=== PATIENT | male | born 1985 | race Caucasian/White ===

== ENCOUNTER 2024-04-10 13:28 | Emergency (ER) | payer OTHER, SELFPAY ==
--- OUTSIDE RECORDS SUMMARY | 2024-04-10 13:31 | XMS_ITS | Clinical Summary ---
Author Organization [facility] Address [place], [place] [address] Care Team Providers Care Neurosurgery Physician Name Role Phone Yovani Rinaldi MD Primary Care Provider [phone] Allergies Active Allergy Reactions Criticality Noted Date Comments Sulfa (Sulfonamide Antibiotics) Rash 12/08 Medications No known medications Family History Relation Name Status Comments Father Alive Mother Alive Social History Tobacco Use Types Packs/Day Years Used Date Smoking Tobacco: Every Day Cigarettes Smokeless Tobacco: Never Tobacco Cessation:Ready to Q uit: No; Counseling Given: Yes Sex and Gender Information Value Date Recorded Sex Assigned at Not on file Legal Sex Male 10:33 AM CDT Gender Identity Not on file Sexual Orientation Not on file Obstetrics History Last Filed Vital Signs Vital Sign Reading Time Taken Comments Blood Pressure 145/88 01/04/2018 10:48 AM CDT Pulse 74 01/04/2018 10:48 AM CDT Temperature 37 C (98.6 F) 01/04/2018 10:48 AM CDT Respiratory Rate - - Oxygen Saturation 99% 01/04/2018 10: 48 AM CDT Inhaled Oxygen Concentration - - Weight 112.9 kg (248 lb 12.8 oz) 2017 10:48 AM CDT Height - - Body Mass Index - - Plan of Treatment Health Maintenance Due Date Last Done Comments Tdap 1997 Depression screening for age 12+ 1998 HIV for age 15-65 2001 BMI (ht and wt on same day) for age 18+ 2004 Hepatitis C screening for ag e 18-79 2004 Tetanus booster 2006 Lipids for age 35-44 2021 COVID-19 vaccine series ( season) 2023 Influenza for age 9-49 12/08/2023 Pneumococcal series for age 6-49 Aged Out No longer eligible based on patient's age to complete this topic Insurance ZINA ADAIR [id number] Care Teams Neurosurgery Physician Relationship Specialty Start Date End Date Yovani Rinaldi MD [address] [place] [address] PCP - General Family Practice 01/04/18
[2024-04-10 13:45] VITALS: BP 144/80; PULSE 78; RESP 16; TEMP 36.8; O2SAT 97; BMI 37.0
--- NOTE | 2024-04-10 15:23 | ED_ITS ---
HPI - Wound/Laceration General Time Seen by Provider: 15:23 Date Seen: 04/10/24 Chief Complaint: Laceration/Wound Stated Complaint: left hand middle finger cut by razor jovani Time Seen by Provider: 04/10/24 15:23 Source: patient and RN notes reviewed Mode of arrival: ambulatory Limitations: no limitations History of Present Illness HPI narrative: Dany is a very pleasant 39-year-old male with up-to-date tetanus in 2017 who comes to the emergency room for evaluation regarding a laceration to the dorsum of his left hand. Patient notes that he was at work when this occurred. He was using a new blade that he shows me and is triangle cutting new pipe and it slipped and the blade went into the area of the hand just lateral and distal to the MCP. Since that time the wound has stopped bleeding but he states he has a numb type feeling and he has a hard time with straightening of his 3rd finger. He has not injured this finger in the past. Related Data Allergies Allergy/AdvReac Type Severity Reaction Status Date / Time Sulfa (Sulfonamide Allergy Intermediate Hives Verified 01/13/23 11:47 Antibiotics) Review of Systems Status of ROS: Reports: 6 or more systems reviewed and unremarkable except as noted in History and below [facility] Social History Smoking Status: Current some day smoker Exam Narrative: Exam Narrative: Alert and oriented no acute distress. Examination of the dorsum of the left hand shows a 2.3 cm laceration at the base of the 3rd finger lateral to the midline. This compromises epidermis and dermis . Underlying structures are visualized. No foreign bodies are noted. Patient has full sensation distally. However extension against resistance is painful and weaker than the other fingers. Const: Vital Signs, click to edit/add: Vital Signs - 24 hr 04/10/24 13:45 Temperature 98.2 F Pulse Rate [Pulse Oximeter] 78 Respiratory Rate 16 Blood Pressure [Ri ght Upper Arm] 144/80 H Pulse Oximetry 97 Oxygen Delivery Me thod Room Air Documenting provider has reviewed patient's vital signs: yes Course Course ED Course: At this time will numb this area up and irrigate extensively. Reevaluation(s) Reevaluation #1: Patient noted to have 3 sutures of 4-0 Ethilon pace in interrupted fashion with good wound closure. A splint to limit flexion of the fingers is then placed. Consultations Consultation #1: Was able to discuss this patient with our orthopedic surgeon Dr. Pepe for probable extensor tendon injury. At this time patient will be seen on SaturdayApril 13 in the clinic with planned surgical repair if needed next week. Vital Signs Vital signs: Initial Vital Signs Temperature 98.2 F 04/10/24 13:45 Temperature Source Temporal Artery Scan 04/10/24 13:45 Pulse Rate 78 04/10/24 13:45 Pulse Rhythm Regular 04/10/24 13:45 Respiratory Rate 16 04/10/24 13:45 Blood Pressure 144/80 H 04/10/24 13:45 Blood Pressure Mean 101 04/10/24 13:45 Blood Pressure Position Sitting 04/10/24 13:45 Pulse Oximetry 97 04/10/24 13:45 Oxygen Delivery Method Room Air 04/10/24 13:45 Vital Signs Temperature 98.2 F 04/10/24 13:45 Pulse Rate 78 04/10/24 13:45 Respiratory Rate 16 04/10/24 13:45 Blood Pressure 144/80 H 04/10/24 13:45 Pulse Oximetry 97 04/10/24 13:45 Oxygen Delivery Method Room Air 04/10/24 13:45 Temperature 98.2 F 04/10/24 13:45 Pulse Rate 78 04/10/24 13:45 Respiratory Rate 16 04/10/24 13:45 Blood Pressure 144/80 H 04/10/24 13:45 Pulse Oximetry 97 04/10/24 13:45 Oxygen Delivery Method Room Air 04/10/24 13:45 Medications Administered Medications: Discontinued Medications Generic Name Dose Route Start Last Admin Trade Name Freq PRN Reason Stop Dose Admin Lidocaine/Epinephrine 20 ml 04/10/24 15:32 04/10/24 15:44 Lidocaine 1%-Epi 1:100,000 INFILTRATI 04/10/24 15:33 20 ml ONCE ONE Administration MDM - Wound/Laceration MDM Narrative Medical decision making narrative: 1. Left 3rd extensor tendon compromise-will see surgeon on Saturday. Have splinted patient at this time to avoid bending of the left finger. Ibuprofen or Tylenol as needed for pain. 2. Hand laceration-3 sutures of 4-0 Ethilon was placed in interrupted fashion to hold the wound together until seen by Orthopedics. Tetanus up-to-date 3. Disposition-home at this time. No use of left hand while at work. Return for worsening symptoms. Discharge Plan Discharge Clinical Impression: Laceration, Extensor tendon disruption Patient Disposition: Home, Self-Care Condition: Improved Additional Instructions: Wear splint until seen on Saturday by Dr. Pepe for evaluation in the clinic. Appointment time is Ibuprofen or Tylenol as needed for discomfort. Seek medical attention for fever chills increased swelling or signs of infection. Change bandage daily. Follow Up/Referrals: Yovani Rinaldi MD [Primary Care Provider] - Stand Alone Forms: [employer] Info Instructions
[2024-04-10] MEDS: LIDOCAINE 1%-EPI 1:100,000 20 ML INFILTRATI (15:44)
== END 2024-04-10 16:38 | disposition home or self-care (01) ==
PROVIDERS: Emergency Provider Family Medicine; PCP Family Medicine
DX: S61.213A Laceration without foreign body of left middle finger without damage to nail, initial encounter (principal); W26.0XXA Contact with knife, initial encounter
CPT/HCPCS: 12001; 99283; 99284

== ENCOUNTER 2024-04-14 12:58 | Outpatient (CLI) | payer OTHER, SELFPAY | END 2024-04-14 12:59 | disposition home or self-care (01) | LOC: FBOREF 12:59 | PROVIDERS: PCP Family Medicine; Visit Provider Family Medicine | DX: Z13.228 Encounter for screening for other metabolic disorders (principal); Z13.0 Encounter for screening for diseases of the blood and blood-forming organs and certain disorders involving the immune mechanism | CPT/HCPCS: 80048; 85025 ==

== ENCOUNTER 2024-04-20 06:02 | Day surgery (SDC) | payer OTHER, SELFPAY ==
[2024-04-20] VITALS (8 sets, daily range): BP systolic 134–163; BP diastolic 93–109; PULSE 73–89; RESP 16; TEMP 36.6–36.8; O2SAT 95–99; BMI 38.9
--- OUTSIDE RECORDS SUMMARY | 2024-04-20 06:04 | XMS_ITS | Clinical Summary ---
Author Organization [facility] Address [place], [place] [address] Care Team Providers Care Gluer And Wedger Name Role Phone Yovani Rinaldi MD Primary Care Provider [phone] Allergies Active Allergy Reactions Criticality Noted Date [...] to complete this topic Insurance ZINA ADAIR [id number] Care Teams Gluer And Wedger Relationship Specialty Start Date End Date Yovani Rinaldi MD [address] [place] [address] PCP - General Family Practice 01/04/18
[2024-04-20] MEDS: 0.9 % SODIUM CHLORIDE 500 ML 500 ML 100 ML IV (06:47)
[2024-04-20] MEDS: SODIUM CHLORIDE 0.9 % (FLUSH) 10 ML SYRINGE IVF (06:47)
[2024-04-20] MEDS: MIDAZOLAM HCL 1 MG/ML inj IVP (07:10)
[2024-04-20] MEDS: fentaNYL 100 MCG/2 ML inj IVP (07:10)
--- NOTE | 2024-04-20 07:17 | W.PM.H&PU ---
History & Physical Update History & Physical Update H&P Reviewed and patient assessed: No changes noted
--- NOTE | 2024-04-20 07:21 | SUR.PREOP ---
TIME?OUT:?0710 PT/RN/MDA?VERIFICATION?OF?SURGICAL?SITE,?PROCEDURE,?AND?CONSENT OBTAINED?PRIOR?TO?INVASIVE?PROCEDURE.
[2024-04-20] MEDS: CEFAZOLIN 2 GM in 0.9 % SODIUM CHLORIDE Mini-bag 100 ML IVPB (07:32)
--- NOTE | 2024-04-20 08:24 | P.ANES_ITS ---
Anesthesia Charges Start Date/Time Anesthesia Start Date: 04/20/24 Anesthesia Start Time: 07:18 Stop Date/Time Anesthesia Stop Date: 04/20/24 Anesthesia Stop Time: 08:25 Coding CPT Codes CPT Codes: ANESTH LOWER ARM SURGERY - 99452 ([id number]) P2 - PATIENT W/MILD SYST DISEASE, QK - STAFF RESPIRATORY THERAPIST 2-4 CNCRNT ANES PROC, QX - CHEESE GRADER SVC W/ MD MED DIRECTION
--- NOTE | 2024-04-20 08:24 | W.ANESCHARGE ---
Anesthesia Charges Start Date/Time Anesthesia Start Date: 04/20/24 Anesthesia Start Time: 07:18 Stop Date/Time Anesthesia Stop Date: 04/20/24 Anesthesia Stop Time: 08:25 Coding CPT Codes CPT Codes: ANESTH LOWER ARM SURGERY - 79590 ([id number]) P2 - PATIENT W/MILD SYST DISEASE, QK - AVIATION MAINTENANCE TECHNICIAN 2-4 CNCRNT ANES PROC, QX - GLASS MAKER SVC W/ MD MED DIRECTION
--- NOTE | 2024-04-20 08:51 | P.ANES_ITS ---
Anesthesia Charges Start Date/Time Anesthesia Start Date: 04/20/24 Anesthesia Start Time: 07:18 Stop Date/Time Anesthesia Stop Date: 04/20/24 Anesthesia Stop Time: 08:25 Coding CPT Codes CPT Codes: ANESTH LOWER ARM SURGERY - 26447 ([id number]) QK - FOREIGN TRADE TEACHER 2-4 CNCRNT ANES PROC, QX - SUPERVISOR PHOSPHORIC ACID SVC W/ MD MED DIRECTION, P2 - PATIENT W/MILD SYST DISEASE
--- NOTE | 2024-04-20 08:51 | W.ANESCHARGE ---
Anesthesia Charges Start Date/Time Anesthesia Start Date: 04/20/24 Anesthesia Start Time: 07:18 Stop Date/Time Anesthesia Stop Date: 04/20/24 Anesthesia Stop Time: 08:25 Coding CPT Codes CPT Codes: ANESTH LOWER ARM SURGERY - 41437 ([id number]) QK - SIDE PANEL PADDER 2-4 CNCRNT ANES PROC, QX - MACHINE FANCY STITCHER SVC W/ MD MED DIRECTION, P2 - PATIENT W/MILD SYST DISEASE
--- NOTE | 2024-04-20 08:51 | W.PM.NB ---
Nerve Block Nerve Block Time Seen by Provider: 07:14 Date Seen: 04/20/24 Type of block requested by surgeon for post-operative analgesia: axillary Side: left Time out performed: Yes Verification of patient name: Yes Verification of date of : Yes Site marking: site marked Name of person performing procedure: Miguel Ángel Continuous monitoring Was continuous monitoring of O2 sat, B/P, monitoring analyst, recorded every 15 minutes?: Yes Procedure Checklist: sterile prep, needles and gloves Ultrasound guided. Images saved: Yes Medications given in 5ml increments after negative aspiration: Ropivicaine %: 0.5 mL: 10 Needle gauge: 22 and Lidocaine %: 2 mL: 10 Patient tolerated procedure well: Yes Additional comments: Needle noted adjacent to nerve Block Charges Block Charge (with Pro Fee): Brachial Plexus Use of Ultrasound Machine for Block: Yes- US Guidance/pain block
[2024-04-20] MEDS: IBUPROFEN 200 MG TABLET 400 MG PO (09:08)
[2024-04-20] MEDS: hydrOXYzine pamoate 25 MG CAPSULE PO (09:08)
--- NOTE | 2024-04-20 10:24 | P.ORPRC_ITS ---
Procedure Note Date of procedure: 04/20/24 Procedure: PREOPERATIVE DIAGNOSIS: 1. Left long finger extensor tendon laceration with inability to fully extend finger - zone 5 2. Left hand overlying 3rd MCP joint dorsal traumatic skin laceration POSTOPERATIVE DIAGNOSIS: 1. Left long finger extensor tendon laceration with inability to fully extend finger - zone 5 2. Left hand overlying 3rd MCP joint dorsal traumatic skin laceration PROCEDURE: 1. Left long finger extensor tendon open repair - zone 5 2. Left hand debridement of traumatic laceration including excisional debridement of skin and subcutaneous tissue. SURGEON: Thaddeus Bateman MD. DEVELOPER PROGRAMMER: Edgar Sales PA-C - Of note, an phlebotomist lab assistant was critical for this case to aid in patient positioning, tissue retraction, limb manipulation/positioning, and closure. ANESTHESIA: Supraclavicular block + MAC EBL: 1 mL IMPLANTS: None TOURNIQUET: 25 minutes at 225 torr COMPLICATIONS: None evident INDICATIONS: The patient is a pleasant 39-year-old male who has experienced left long finger laceration from a recent injury. There was concern for a full- thickness extensor tendon laceration as their ability to perform full extension was lacking in addition to incomplete power. Given the findings/dysfunction surgery is recommended for repair. DESCRIPTION OF PROCEDURE: Following a thorough discussion of risks, benefits, and alternatives consent was obtained and the operative extremity was marked. The patient was brought to the operating room and placed supine on the operating table after a block was administered in preop holding. Appropriate time-out was performed identifying proper patient, site, procedure. The left upper extremity was prepped and draped in appropriate sterile fashion knee using ChloraPrep. The limb was exsanguinated and the tourniquet inflated. The previous laceration was reopened. It was also extended proximally and distally in a 'Z' configuration. The skin and SQ tissue, along with the ends of the tendon underwent excisional debridement with a 15 blade scalpel and with a Ray-Bartolome. Once the ends were freshened, 4-0 FiberWire was utilized and modified Stahl technique. 4 strand repair was utilized (2 FiberWire suture). We then performed an epitendinous suturing using 6-0 Prolene. The finger was placed through range of motion and found have good excursion and no excessive tension. The wound was thoroughly irrigated normal saline. Closure of skin was performed with 4-0 nylon. Tourniquet was deflated, hemostasis confirmed to be achieved. The patient had dressings applied and a splint applied and they were woken / transferred to the PACU in stable condition. PLAN: 1. Encourage elevation of the operative extremity. 2. Maintain the dressing/splint until follow-up. Follow up PA visit in 3-12 days for wound check 3. Ibuprofen/acetaminophen and/or Oxycodone as needed for pain control. 4. Ice as needed.
== END 2024-04-20 09:35 | disposition home or self-care (01) ==
LOC: OR 06:03
PROVIDERS: PCP Family Medicine; Visit Provider Orthopaedic Surgery Sports Medicine
PROC: (CPT 26418; principal; 2024-04-20 07:15)
DX: S66.323A Laceration of extensor muscle, fascia and tendon of left middle finger at wrist and hand level, initial encounter (principal); G89.18 Other acute postprocedural pain
CPT/HCPCS: 26418; 01810; 64415; 76942; A9270; J0690; J1100; J2250; J2405; J2704; J2795; J3010; J3490; J7030

== ENCOUNTER 2024-06-29 09:30 | Outpatient (RCR) | payer OTHER, SELFPAY ==
--- NOTE | 2024-06-29 16:47 | OT.OPODN ---
OT Outpatient Ortho Daily Note OT Outpatient Ortho Daily Note* Start: 04/27/24 19:09 Freq: Status: Active Protocol: Document 06/29/24 16:34 LCN (Rec: 06/29/24 16:46 LCN [id number]) E-signed By Meena Degroot, OTR/L, CLT Type of Note Type of Note Type of Note Daily Note,Discharge Note Visit Number 5 Comments 05/15/24-- Pt no show; oTR left VM for pt to reschedule Insurance Information Insurance Information Workman's Comp Insurance Information Comments Worker's comp Outpatient History/Precautions Current Condition/Medical Diagnosis Referring Provider Thaddeus Horn Medical Diagnoses s/p Zone V L dorsal hand extensor tendon repair 04/20/24 (now 7 days POD) Treatment Diagnosis L hand stiffness, weakness Date of Onset 04/10/24 Precautions Lifting Restrictions,Range of Motion Other Precautions Avoid WR FL with digits extended on L hand. Light duty at work with Weeks 1-3 only <5# lifting. Can increase to 10# at 4 weeks and progress steadily with OT, per pain tolerance following. 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 Social History Hobbies snowmobiling, BMX with his kids. Ortho Subjective Subjective Subjective Good incision healing, a bit raised, continues with scar gel nightly. Performs all tasks at work without pain, feeling at pretty well at full strength. Pain Assessment Pain Pain No OT OP Daily Ortho Note/Assessment Therapeutic Exercise Therapeutic Exercise Minutes (minutes) 8 Therapeutic Exercise Comments Dry Cure Worker/pinch and MMT completed, balanced for B sides with great return. No extensor lag , resisted digit extension is equal to other digits. Added upgrade of putty to blue resistance putty for gripping, rolling, 2 pt pinch/ alternating digits, and cole pinch; also hooked flexion, digit adduction and 10# band openers for sustained extension endurance. Well tolerated. Guided to perform at 50-60% effort level 1-2 sets per day keeping at 10-15 min intervals. Do not perform resistance activities if joints are sore, hot or inflamed. Manual Therapy Manual Therapy Minutes (minutes) 10 Manual Therapy Comments IASTM-- OTR cont gentle IASTM with Graston #6 to mobilize soft tissue surrounding joint capsule, ligament structures and muscle groups to support freedom of movement, help alleviate pain by breaking down scar tissue and adhesions and support healing of structures by increasing blood flow and nutrient delivery to the affected area. Ultrasound Ultrasound Minutes (minutes) 8 Ultrasound Location & Joint Position MCP Web space of L MF/RF Ultrasound Frequency & Mode 3 MHz Continuous Intensity (w/cm2) 1.4 Ultrasound Comments as needed to support reduction of edema for tissue healing, improved circulation and tissue mobility. Splinting Splinting Comments 06/03/24-- d/c wr EX cock up, cont RMO during heavy tasks/ work shift. 05/18/24-- Adjusted splint to wrist cock up and d/c MCP finger alder . Added yoke splint with MF MCP in 10-15 hyperextension to protect motion. 04/27/24--Wear 23 of 24 hrs per day-- custom splint/ orthoplast, forearm based wr to 30 degrees extension MCP flexed to 30 and PIP/DIP free to allow tendon gliding IF MCP /PIP/DIP free to allow pinching. Watch for areas of redness, wear compression tetragrip size F underneath and size 1 finger tubing. Total Occupational Therapy Time Occupational Therapy Minutes 26 Home Program Home Program Home Program Revised,Compliant Home Program Specifics blue resistance putty for tuckpointer, hook, 2pt, add 10#band openers. Joint blocking AROM place and holds for MF PIP, DIP and hooked positions with 30% pressure. Gentle stretching in to wrist EX only with fingers in light hook position. Wear custom splint/orthoplast, forearm based wr to 30 degrees extension MCP flexed to 30 and PIP/DIP free to allow tendon gliding IF MCP / PIP/DIP free to allow pinching 23 of 24 hrs per day. Range of Motion and Strength Wrist Range of Motion and Strength Wrist Range of Motion and Strength Has > 60 degree WR EX and WR FL, observed functionally during splinting process; pt guided to avoid wrist flexion . Hand/Finger/Thumb Range of Motion and Strength Hand/Finger/Thumb Range of Motion and Can passively flex MF to 90% Strength of full hook position MF limited by moderate edema. RF to 100% hook and rol into palm. MF not tested to keep surgical integrity. Hand Pinch/Dry Cure Worker Strength Hand Pinch/Dry Cure Worker Strength Hand Pinch/Dry Cure Worker Strength Left Hand,Right Hand Left Hand Dry Cure Worker Strength Position 1 in Elbow 145 Flexion (lbs) Lateral Pinch Strength (lbs) 38 Three Point Pinch (lbs) 31 Right Hand Dry Cure Worker Strength Position 1 in Elbow 150 Flexion (lbs) Lateral Pinch Strength (lbs) 38 Three Point Pinch (lbs) 35 Comments Comments 06/29/24-- per above. no pain. Pt has no lag in at end ROM of WR EX, wrist neutral and table top positions. OT Problems Problems Problems Decreased Strength,Decreased Range of Motion,Lifting, Gripping,Pinching Other Problems Opening Containers,Computer, Fasteners,Sleeping Patient Potential Excellent Assessment Assessment Assessment Pt agrees his goals are met and is ready for discharge from OT. Occupational Therapy Treatment Plan - OP Potential Rehabilitation Potential Excellent Goals Goals After 5 visits of OT, Mike demonstrates:? 1) Decreased pn to <2/10 80% of the time with sustained gripping, carrying groceries, and use of hand tools. 06/29/24 PROGRESS-- GOAL MET, exceeded . 2) I HEP for stretching, gradual strengthening and self mgmt strategies. 06/29/24 PROGRESS-- GOAL MET, exceeded. 3) improved L tuckpointer strength to 50# and 3 pt pinch to 12# with L middle finger/hand pain < 1/10. 06/29/24 PROGRESS-- GOAL MET, exceeded. 4)??Pt to be fit with functional bracing (for custom splint in orthoplast, forearm based wr to 30 degrees extension MCP flexed to 30 and PIP/DIP free to allow tendon gliding, IF MCP /PIP/ DIP free to allow pinching) and use adaptive strategies to protect joint integrity to support less pain with ADL. PROGRESS-- GOAL MET, and splints d/c. Treatment Plan Treatment Plan Evaluation,Edema Control, Manual Therapy,Ultrasound, Wound Care/Scar Management, Therapeutic Exercise, Therapeutic Activities,Self Care/Home Management,Education Expected Frequency 1-2x Week Expected Duration 8-10 Weeks Expected Duration Comments likely 8-10 visits Occupational Therapy Billing Units Treatment Minutes Timed Treatment Minutes 26 Total Treatment Minutes 26 Billing Units Manual Therapy 1 Therapeutic Exercise 1 Ultrasound 1 Certification Statement Certification Statement I Certify That: Therapy Services Provided, Therapy Plan Established, Therapy Plan Reviewed Discharge Note Discharge Note Discharge Summary Per goal progress above Date of First Visit for Therapy 04/27/24 Date of Last Visit for Therapy 06/29/24 Initial Primary Functional Limitations/ Mike Ronni is an 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 Sliced into a 2nd harder density of tubing material while using a coin box inspector, slipped and struck the dorsum of his L hand on while working. Was seen in ER, referred to Ortho for further follow up and had surgical repair of L hand extensor Zone V laceration of long finger/MF on 04/20/24. Now referred to OT for fitting of custom splint in orthoplast, forearm based leaving the IF free to allow pinching and further rehab of the L hand use from motion to higher level resistance. Interventions Provided During Treatment Evaluation,Joint Mobilization, Manual Therapy,Splinting, Ultrasound,Therapeutic Exercise,Self Care/Home Management,Education
== END 2024-10-27 23:59 | disposition home or self-care (01) ==
PROVIDERS: PCP Family Medicine; Visit Provider Orthopaedic Surgery Sports Medicine
DX: Z48.89 Encounter for other specified surgical aftercare (principal); Z51.89 Encounter for other specified aftercare
CPT/HCPCS: 97035; 97110; 97140; 97165; 97530; L3808; X5282